=== PATIENT | male | born 1950 | race Hispanic/Latino ===

== ENCOUNTER 2018-10-21 06:23 | Inpatient (IN) | payer MEDICARE, BC ==
[2018-10-21 07:01] LABS: BASO # 0.06 K/mm3 (0.0-2.0); BASO % 0.6 % (0.0-3.0); EOS # 1.1 (0.0-0.7); EOS % 11.3 % (1.5-5.0); HEMOGLOBIN 15.1 g/dL (14.0-18.0); LYMPH # 3.3 (1.2-3.4); MEAN CELL VOLUME 89.8 fl (80.0-105.0); MEAN CORPUSCULAR HEMOGLOBIN 30.1 pg (25.0-35.0); MEAN CORPUSCULAR HGB CONC 33.6 g/dl (31.0-37.0); MEAN PLATELET VOLUME 10.1 fl (7.0-11.0); MONO # 1.2 (0.1-0.6); MONO % 11.6 % (1.0-6.0); RBC 5.01 10^6/uL (3.5-6.1); RED CELL DISTRIBUTION WIDTH 13.3 % (11.5-14.5); WHITE BLOOD COUNT 9.9 10^3/uL (4.5-11.0)
[2018-10-21] MEDS ORDERED: Sodium Chloride 0.9% 1,000 ML IV STA (07:04)
[2018-10-21 07:06] LABS: INR 1.02; PARTIAL THROMBOPLASTIN TIME 27.3 Seconds (26.9-38.3); PROTHROMBIN TIME 11.5 SECONDS (9.4-12.5)
--- NOTE | 2018-10-21 07:15 | ED PDOC ---
Arrival/HPI - General Chief Complaint: Chest Pain Historian: Patient, Spouse - History of Present Illness Narrative History of Present Illness (Text): 10/21/18 07:09 Pt is a 68 yo male with a PMH of Hhyperlipidemia, hypertension, MO with 8 stents most recent April 2018, rheumatic fever who presented to the ED complaining of 6/10 "heavy" chest pain which started at 5am this morning while the pt was sleeping. The pain awoke the pt from sleep, pt states he woke up diaphoretic and felt like the room was spinning. Pt at bedside to help relate the history. Pt has a strong family history of cardiac problems. Pt states he take Brilinta and ASA, but forgot to take his morning dose of Brilinta yesterday. Pt states the pain radiates down his right arm. Denies pain radiating to his jaw. Pt reports feeling like the room is spinning. The pain is not positional. Pt states he feels shortness of breath. Denies nausea, vomiting. Time/Duration: 1-3 hours Symptom Onset: Sudden Symptom Course: Worsening Quality: Pressure Severity Level: 6 Activities at Onset: Sleeping Context: Sitting Past Medical History - Infectious Disease Hx of Infectious Diseases: None - Tetanus Immunization Tetanus Immunization: Unknown - Past Medical History Past Medical History: No Previous - Cardiac Hx MO: Yes - Psychiatric Hx Depression: No Hx Emotional Abuse: No Hx Physical Abuse: No Hx Substance Use: No - Past Surgical History Past Surgical History: No Previous - Surgical History Hx Cardiac Catheterization: Yes Hx Coronary Stent: Yes (x7) - Suicidal Assessment Feels Threatened In Home Enviroment: No Family/Social History Family/Social History: Hypertension, CAD/MO Smoking Status: Never Smoked Hx Alcohol Use: No Hx Substance Use: No Hx Substance Use Treatment: No Allergies/Home Meds Allergies/Adverse Reactions: Allergies No Known Allergies Allergy (Verified 09/23/12 19:57) Home Medications: Home Meds Medication Instructions Recorded Confirmed Atorvastatin Calcium [Lipitor] 40 mg PO DAILY 09/23/12 09/23/12 Ezetimibe [Zetia] 10 mg PO DAILY 09/23/12 09/23/12 Metoprolol Tartrate [Lopressor] 25 mg PO BID 09/23/12 09/23/12 Ramipril [Altace] 10 mg PO DAILY 09/23/12 09/23/12 Review of Systems - Review of Systems Constitutional: Night Sweats Eyes: Normal ENT: Normal Respiratory: SOB Cardiovascular: Chest Pain Gastrointestinal: Normal Musculoskeletal: Normal Skin: Normal Neurological: Dizziness Endocrine: Normal Hemo/Lymphatic: Normal Psychiatric: Normal Physical Exam Vital Signs Reviewed: Yes Vital Signs Temp Pulse Resp BP Pulse Ox 10/21/18 06:24 97.1 F L 69 24 134/71 94 L Temperature: Afebrile Blood Pressure: Normal Pulse: Regular Respiratory Rate: Normal Appearance: Positive for: Uncomfortable Mental Status: Positive for: Alert and Oriented X 3 - Systems Exam Head: Present: Atraumatic, Normocephalic Pupils: Present: PERRL Extroacular Muscles: Present: EOMI Mouth: Present: Moist Mucous Membranes Pharnyx: Present: Normal Respiratory/Chest: Present: Clear to Auscultation, Good Air Exchange. No: Respiratory Distress, Accessory Muscle Use Cardiovascular: Present: Regular Rate and Rhythm, Normal S1, S2 Abdomen: Present: Normal Bowel Sounds. No: Tenderness, Distention Upper Extremity: Present: Normal Inspection. No: Cyanosis, Edema Lower Extremity: Present: Normal Inspection Neurological: Present: GCS=15, CN II-XII Intact Skin: Present: Warm, Dry, Normal Color Psychiatric: Present: Alert, Oriented x 3 Medical Decision Making ED Course and Treatment: 10/21/18 07:18 Troponin Cardiac Iso CMP BNP Nitro SL Bolus 1L NS CXR shows no acute pathology EKG RRR, shows no ST or T wave abnormality, no signs of STEMI 10/21/18 07:35 pt complaining of nausea, gave reglan 10/21/18 08:33 HEART Score for Major Cardiac Events 6 points Moderate Score (4-6 points) Risk of MACE of 12-16.6%. History > 2 = Highly suspicious EKG > 0 = Normal Age > 2 = >65 Risk factors > 2 = >3 risk factors or history of atherosclerotic disease Initial troponin > [address] De La Vega, admit pt to tele for observation and ACS rule out Pt seen, examined, assessment and plan discussed with Dr Eloisa Magana PGY1 - Lab Interpretations Lab Results: PT 11.5 SECONDS (9.4-12.5) 10/21/18 06:40 INR 1.02 10/21/18 06:40 APTT 27.3 Seconds (26.9-38.3) 10/21/18 06:40 - RAD Interpretation Radiology Orders: 10/21/18 06:48 CHEST PORTABLE [RAD] Stat - Medication Orders Current Medication Orders: Sodium Chloride (Sodium Chloride 0.9%) 1,000 mls @ 999 mls/hr IV .Q1H1M STA Stop: 10/21/18 08:04 Discontinued Medications Nitroglycerin (Nitrostat Sl Tab) 0.4 mg SL STAT STA Stop: 10/21/18 07:06 - PA / PHARMACY DELIVERY DRIVER / Resident Statement KEHINDE has reviewed & agrees with the documentation as recorded. / has examined the patient and agrees with the treatment plan. Disposition/Present on Arrival - Present on Arrival Any Indicators Present on Arrival: No History of DVT/PE: No History of Uncontrolled Diabetes: No Urinary Catheter: No History of Decub. Ulcer: No History Surgical Site Infection Following: None - Disposition Have Diagnosis and Disposition been Completed?: Yes Diagnosis: Chest pain Disposition: HOSPITALIZED Disposition Time: 08:40 Patient Plan: Admission Patient Problems: Current Active Problems Problem Status Onset Chest pain Acute Condition: FAIR Discharge Instructions (ExitCare): Chest Pain (ED) Referrals: Kojo Gatica DO [Primary Care Provider] - Follow up with primary Forms: [id number] (Emirati)
[2018-10-21 07:50] VITALS: BMI 31.6
[2018-10-21 08:14] LABS: ALB/GLOB RATIO 1.4 (1.1-1.8); ALT/SGPT 40 U/L (7-56); AST/SGOT 39 U/L (17-59); BLOOD UREA NITROGEN 19 mg/dL (7-21); CALCIUM 8.9 mg/dL (8.4-10.5); GFR NON-AFRICAN AMERICAN > 60
[2018-10-21 08:26] LABS: CK MB% 2.1 % (2.5-3.0)
[2018-10-21 08:27] LABS: TROPONIN I < 0.01 ng/mL
--- NOTE | 2018-10-21 09:51 | CP.PCM.HP ---
<Kayla Arenas - Last Filed: 10/21/18 10:19> History of Present Illness - History of Present Illness History of Present Illness: H&P for Dr. Black's Service CC: Chest tightness/pain/dizziness/diaphoretic/shortness of breath HPI: 68 M with a PMHx of HTN, HLD, CAD s/p 8 stents (2006 -7stents &2018 -1 stent) that presented to [facility] with complaints of chest pain and tightness. He states his symptoms began roughly 5am this morning where he was awoken by his chest discomfort and found to be diaphoretic and dizzy as if he were spinning. He states his constellation of current symptoms were similar in nature to his first OH in 2005. 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 Patient was originally taking plavix after his first OH, finished his course and was started on Brilanta s/p his most recent OH in 2018. Patient was seen and examined at bedside with spouse available. Patient states his chest pain and discomfort has improved, however exacerbates intermittently with radiation to his right arm. He is less dizzy than before, and becomes more dizzy upon closing his eyes. He also has complaints of labored breathing, that has improved as well. Patient admits to 80-90% compliance with his home meds, and he stated that he had not taken his medications for the past couple of days on account of being too busy. Patient denied fever, abdominal p ains, headaches, blurry vision, nausea, vomiting, diarrhea, constipation, dysuria, hematuria, melena, or hematochezia. PMHx: HTN, HLD, CAD s/p 8 stents, rheumatic fever PSHx: PCI x 2 SHx: Denied tobacco/etoh/ illicit substances FamHx: Father: [place] in 50s, Mother: [place] Meds: asa, brilanta, lipitor, metoprolol, ramipril, chloraxazone 500 TID, Allergies: NKDA PMD: Dr. Gatica Cardiolgy: Dr. Cespedes Present on Admission - Present on Admission Any Indicators Present on Admission: No Review of Systems - Review of Systems Review of Systems: as per HPI otherwise negative Past Patient History - Infectious Disease Hx of Infectious Diseases: None - Tetanus Immunizations Tetanus Immunization: Unknown - Past Social History Smoking Status: Never Smoked - CARDIAC Hx Heart Attack: Yes - PSYCHIATRIC Hx Depression: No Hx Emotional Abuse: No Hx Physical Abuse: No Hx Substance Use: No - SURGICAL HISTORY Hx Cardiac Catheterization: Yes Hx Coronary Stent: Yes (x7) Meds Allergies/Adverse Reactions: Allergies Allergy/AdvReac Type Severity Reaction Status Date / Time No Known Allergies Allergy Verified 09/23/12 19:57 Physical Exam - Constitutional Appears: No Acute Distress - Head Exam Head Exam: ATRAUMATIC, NORMAL INSPECTION, NORMOCEPHALIC - Eye Exam Eye Exam: EOMI, Normal appearance, PERRL - ENT Exam ENT Exam: Mucous Membranes Moist, Normal Exam - Neck Exam Neck exam: Positive for: Normal Inspection - Respiratory Exam Respiratory Exam: Clear to Auscultation Bilateral, NORMAL BREATHING PATTERN. absent: Chest Wall Tenderness, Rales, Rhonchi - Cardiovascular Exam Cardiovascular Exam: REGULAR RHYTHM, +S1, +S2 - GI/Abdominal Exam GI & Abdominal Exam: Normal Bowel Sounds, Soft. absent: Tenderness - Extremities Exam Extremities exam: Positive for: normal inspection. Negative for: pedal edema - Neurological Exam Neurological exam: Alert, CN II-XII Intact, Normal Gait, Oriented x3, Reflexes Normal - Psychiatric Exam Psychiatric exam: Normal Affect, Normal Mood - Skin Skin Exam: Dry, Intact, Normal Color, Warm Results - Vital Signs Recent Vital Signs: Last Vital Signs Temp 97.1 F L 10/21/18 06:24 Pulse 76 10/21/18 09:28 Resp 16 10/21/18 09:28 BP 138/86 10/21/18 09:28 Pulse Ox 96 10/21/18 09:28 - Labs Result Diagrams: 10/21/18 06:40 10/21/18 06:40 Labs: Laboratory Results - last 24 hr 10/21/18 10/21/18 10/21/18 06:40 06:40 06:40 WBC 9.9 RBC 5.01 Hgb 15.1 Hct 45.0 MCV 89.8 MCH 30.1 MCHC 33.6 RDW 13.3 Plt Count 259 MPV 10.1 Neut % (Auto) 43.5 L Lymph % (Auto) 33.0 Stanton % (Auto) 11.6 H Eos % (Auto) 11.3 H Baso % (Auto) 0.6 Lymph # (Auto) 3.3 Stanton # (Auto) 1.2 H Eos # (Auto) 1.1 H Baso # (Auto) 0.06 Absolute Neuts (auto) 4.29 PT 11.5 INR 1.02 APTT 27.3 Sodium 141 Potassium 3.6 Chloride 108 H Carbon Dioxide 24 Anion Gap 13 BUN 19 Creatinine 0.8 Est GFR ( Amer) > 60 Est GFR (Non-Af Amer) > 60 Random Glucose 174 H Calcium 8.9 Total Bilirubin 0.3 AST 39 ALT 40 Alkaline Phosphatase 101 Lactate Dehydrogenase 551 Total Creatine Kinase 427 H CK-MB (CK-2) 9.0 H CK-MB (CK-2) % 2.1 L Troponin I < 0.01 NT-Pro-B Natriuret Pep 14.0 Total Protein 6.8 Albumin 4.0 Globulin 2.8 Albumin/Globulin Ratio 1.4 Assessment & Plan - Assessment and Plan (Free Text) Assessment: 68 M with a PMHx of HTN, HLD, CAD s/p 8 stents admitted for chest pain rule out of ACS Unstable Anglina - hx CAD s/p 8 stents - trop negative x1, continue to trend q8h - EKG trend - analgesics prn - nitropaste if pain persists - Heparin drip - asa and brilanta - Cardiology consult Dr. Whiteside Shortness of breath - duonebs prn - CXR pending - f/u BNP, CXR HTN - metoprolol 25 mg BID - Ramipril 10mg daily - VSS - continue to monitor HLD - lipid panel pending - lipitor 40mg - continue to monitor CAD s/p 8 stents - Asa and brilanta GI/ dvt ppx Seen reviewed and discussed with Dr. De La Vega <Sara De La Vega - Last Filed: 10/21/18 13:14> Results - Vital Signs Recent Vital Signs: Last Vital Signs Temp 97.4 F L 10/21/18 12:00 Pulse 73 10/21/18 12:00 Resp 19 10/21/18 12:00 BP 145/85 10/21/18 12:00 Pulse Ox 96 10/21/18 09:28 - Labs Result Diagrams: 10/21/18 06:40 10/21/18 06:40 Labs: Laboratory Results - last 24 hr 10/21/18 10/21/18 10/21/18 06:40 06:40 06:40 WBC 9.9 RBC 5.01 Hgb 15.1 Hct 45.0 MCV 89.8 MCH 30.1 MCHC 33.6 RDW 13.3 Plt Count 259 MPV 10.1 Neut % (Auto) 43.5 L Lymph % (Auto) 33.0 Stanton % (Auto) 11.6 H Eos % (Auto) 11.3 H Baso % (Auto) 0.6 Lymph # (Auto) 3.3 Stanton # (Auto) 1.2 H Eos # (Auto) 1.1 H Baso # (Auto) 0.06 Absolute Neuts (auto) 4.29 PT 11.5 INR 1.02 APTT 27.3 Sodium 141 Potassium 3.6 Chloride 108 H Carbon Dioxide 24 Anion Gap 13 BUN 19 Creatinine 0.8 Est GFR ( Amer) > 60 Est GFR (Non-Af Amer) > 60 Random Glucose 174 H Hemoglobin A1c Calcium 8.9 Phosphorus Magnesium Total Bilirubin 0.3 AST 39 ALT 40 Alkaline Phosphatase 101 Lactate Dehydrogenase 551 Total Creatine Kinase 427 H CK-MB (CK-2) 9.0 H CK-MB (CK-2) % 2.1 L Troponin I < 0.01 NT-Pro-B Natriuret Pep 14.0 Total Protein 6.8 Albumin 4.0 Globulin 2.8 Albumin/Globulin Ratio 1.4 Triglycerides Cholesterol LDL Cholesterol Direct HDL Cholesterol TSH 3rd Generation 10/21/18 10/21/18 10/21/18 06:40 06:40 06:40 WBC RBC Hgb Hct MCV MCH MCHC RDW Plt Count MPV Neut % (Auto) Lymph % (Auto) Stanton % (Auto) Eos % (Auto) Baso % (Auto) Lymph # (Auto) Stanton # (Auto) Eos # (Auto) Baso # (Auto) Absolute Neuts (auto) PT INR APTT Sodium Potassium Chloride Carbon Dioxide Anion Gap BUN Creatinine Est GFR ( Amer) Est GFR (Non-Af Amer) Random Glucose Hemoglobin A1c 6.0 Calcium Phosphorus 2.8 Magnesium 2.2 Total Bilirubin AST ALT Alkaline Phosphatase Lactate Dehydrogenase Total Creatine Kinase CK-MB (CK-2) CK-MB (CK-2) % Troponin I NT-Pro-B Natriuret Pep Total Protein Albumin Globulin Albumin/Globulin Ratio Triglycerides 193 H Cholesterol 170 LDL Cholesterol Direct 109 HDL Cholesterol 28 L TSH 3rd Generation 1.26 Attending/Attestation - Attestation I have personally seen and examined this patient.: Yes I have fully participated in the care of the patient.: Yes I have reviewed all pertinent clinical information: Yes Notes (Text): 10/21/18 13:10 Medical record note made by the resident after discussion with my direction and input after the patient was personally seen and examined by me. I have reviewed the chart and agree that the record accurately reflects by personal performance of the history, physical exam, data review, and medical decision-making, in the course for the patient. I have also personally directed the plan of care. 68 M with a PMHx of HTN, HLD, CAD, SP OH, multiple cardiac is admitted with chest pain started this morning.Chest pain is intermittent associated with diaphoresis and dyspnea.Patient EKG is negative for acute ST changes.His s ymptoms are suggestive of Unstable angina, Initial troponins are normal, we will get serial troponins to rule out OH. ,We will start patient on anticoagulation with IV heparin, Continue ASA/Brilanta/Metoprolol/Lipitor/Ramipril. We will get 2D Echo and cardiology consult. Management plan was discussed in detail with patient. Education was provided.
[2018-10-21] MEDS ORDERED: Enoxaparin 40 mg Syringe SC SCH (10:00)
--- NOTE | 2018-10-21 10:12 | RAD ---
Date of service: 10/21/2018 HISTORY: CHEST PAIN COMPARISON: No prior. TECHNIQUE: 1 view obtained. FINDINGS: LUNGS: No active pulmonary disease. PLEURA: No significant pleural effusion identified, no pneumothorax apparent. CARDIOVASCULAR: Aortic calcification Normal cardiac size. No pulmonary vascular congestion. OSSEOUS STRUCTURES: No significant abnormalities. VISUALIZED UPPER ABDOMEN: Normal. OTHER FINDINGS: None. IMPRESSION: No active disease.
[2018-10-21] MEDS ORDERED: Morphine 2 mg/ml ISec IVP STA (10:16)
[2018-10-21] MEDS ORDERED: Albuterol-Ipratrop 3 mg / 0.5 (3 ml) UD IH PRN (10:18)
[2018-10-21] MEDS ORDERED: Heparin25000 units/250ml 1/2NS 25,000 UNITS/250 ML BAG IV SCH (10:30)
--- NOTE | 2018-10-21 18:14 | CARD ---
APPROVED REPORT Date of service: 10/21/2018 EKG Measurement Heart [id number] <Conclusion> Normal sinus rhythm Minimal voltage criteria for LVH, may be normal variant Borderline ECG
--- NOTE | 2018-10-21 23:03 | CON ---
DATE: 10/21/2018 HISTORY OF PRESENT ILLNESS: The patient is a 68-year-old male with aggressive atherosclerosis with a eight stents placed by Dr. Dhaliwal in the past including a recent one done by Dr. Medeiros in [facility] in April 2018. The patient had a remote myocardial infarction in the past. His cardiac risk factors include hypertension, diabetes mellitus as well as hypercholesterolemia which is not ideally controlled. The patient woke up this morning with classic angina with substernal chest pain associated with diaphoresis The patient is compliant with his medications which include Brilinta, aspirin as well as Lipitor. SOCIAL HISTORY: The patient denies smoking. REVIEW OF SYSTEMS: A 14-point review of systems was as described as above. PHYSICAL EXAMINATION: VITAL SIGNS: The blood pressure is 138/86. The heart rate is in the 70s. NECK: Negative JVD. LUNGS: Without rales. HEART: S1, S2. EXTREMITIES: Without edema. EKG shows normal sinus rhythm with nonspecific ST-T changes. LABORATORY DATA: The glucose is 174. The first troponin is negative. The cholesterol LDL was 109. The hemoglobin is 15.1. IMPRESSION 1. Unstable angina. 2. High probability for recurrence of coronary stenosis. 3. History of multiple of multiple percutaneous transluminal coronary angioplasty and stents in the past. 4. Diabetes mellitus. 5. Hypertension. 6. Hypercholesterolemia. PLAN: Given these findings, the patient was started on aspirin, resumption of his the Brilinta, IV heparin, increased beta blockers. I have discussed risks, benefits of a repeat catheterization with the patient and family in detail. We will schedule for catheterization in the morning. Sagar Whiteside MD
[2018-10-22] MEDS ORDERED: Pantoprazole 40 mg EC Tab PO SCH (06:00)
[2018-10-22 06:45] LABS: BASO # 0.02 K/mm3 (0.0-2.0); BASO % 0.2 % (0.0-3.0); EOS # 0.5 (0.0-0.7); EOS % 3.7 % (1.5-5.0); LYMPH # 2.2 (1.2-3.4); LYMPH % 17.1 % (22.0-35.0); MEAN CORPUSCULAR HEMOGLOBIN 29.7 pg (25.0-35.0); MEAN CORPUSCULAR HGB CONC 32.9 g/dl (31.0-37.0); MEAN PLATELET VOLUME 9.9 fl (7.0-11.0); MONO # 1.2 (0.1-0.6); MONO % 9.4 % (1.0-6.0); RBC 4.72 10^6/uL (3.5-6.1); RED CELL DISTRIBUTION WIDTH 13.5 % (11.5-14.5); WHITE BLOOD COUNT 12.7 10^3/uL (4.5-11.0)
[2018-10-22 06:54] LABS: ALB/GLOB RATIO 1.3 (1.1-1.8); ALBUMIN 3.8 g/dL (3.0-4.8); ALT/SGPT 40 U/L (7-56); AST/SGOT 28 U/L (17-59); BLOOD UREA NITROGEN 19 mg/dL (7-21); GFR NON-AFRICAN AMERICAN > 60
[2018-10-22] MEDS ORDERED: Lidocaine PF 2% (5 ml) Inj (For Cardiac Arrhy) ONE (07:14)
[2018-10-22] MEDS ORDERED: Iohexol 350mgl/ml 50 ML ONE (07:14)
[2018-10-22] MEDS ORDERED: Iodixanol 320 MG/ML 100 ML BOTTLE IV ONE (07:14)
[2018-10-22] MEDS ORDERED: Iodixanol 320 MG/ML 200 ML BOTTLE IV ONE (07:15)
[2018-10-22] MEDS ORDERED: Famotidine 20mg/50ml 20 MG/50 ML BAG IVPB ONE (08:27)
[2018-10-22] MEDS ORDERED: DiphenhydrAMINE 50 mg/ml Inj ONE (08:27)
[2018-10-22] MEDS ORDERED: Midazolam 2 MG/2 ML VIAL ONE ×2 (09:06→09:13)
[2018-10-22] MEDS ORDERED: Sodium Chloride 0.9% 1,000 ML IV SCH (10:00)
--- NOTE | 2018-10-22 12:17 | CP.PCM.PCO ---
Physician Communication Note - Physician Communication Note Physician Communication Note: echocardiogram and carotid pending, s/p cardiac cath with stenting
--- NOTE | 2018-10-22 14:29 | CARDCATH ---
PROCEDURE DATE: 10/22/2018 CARDIAC CATHETERIZATION AND PTCA HISTORY: The patient is a 68-year-old male who presents with unstable angina. Because of his ongoing symptoms, cardiac catheterization was recommended. PROCEDURE: Left heart catheterization with coronary arteriography and left ventriculogram followed by with supra-aortic valvular injection, followed by PTCA and stent of the circumflex artery. The right femoral artery was cannulated with 6-Djiboutian sheath. There were no complications. I performed moderate sedation which included the presence of an independent trained observer that assisted in monitoring the patient's level of consciousness and physiologic status. After administration of Versed and fentanyl, my intra service time was 30 minutes. The findings on catheterization revealed a left ventricle that revealed a mild segmental wall motion abnormality of the inferoapical segment. Overall ejection fraction was 50% to 55%. Supra-aortic valvular injection revealed a dilated descending aorta without aortic insufficiency. The patient had a left dominant circulation. The RCA revealed a long stent in the proximal to midportion. There is a 50% stenosis in the distal portion of the stent. The left main artery is unremarkable. The LAD revealed diffuse atherosclerosis with a patent stent. The circumflex artery and obtuse marginal branches revealed multiple stents throughout its vessel and branches in the second obtuse marginal branch in the proximal portion. In between two stents, there is a 80% stenosis noted. The patient was started on intravenous Angiomax on the floor on the fluoroscopic guide, the guiding catheter was placed in the ostium of the left main artery and 0.014 ATW wire was used to cross the critical lesion, 2.75 x 12 mm drug-eluting stent was placed and deployed at 15 ounces of pressure. Repeat coronary arteriography revealed an excellent result with no residual stenosis and RACHEL III flow. AngioSeal was used to close the femoral artery site. The patient tolerated the procedure well. In summary, the procedure was successful for PTCA and stent of a critically stenosed obtuse marginal branch. The patient has multiple stents throughout its coronary tree and has aggressive atherosclerosis. His cholesterol is not well-controlled on extensive statin therapy. He has been intolerant to many others. Given his aggressive nature of his atherosclerosis and is poorly controlled cholesterol with oral statin therapy including intolerance to some of the medications, we will recommended the patient be placed on the . He will need to continue his aspirin and Brilinta for least a year. Sagar Whiteside MD [facility] # [id number]
--- NOTE | 2018-10-22 15:09 | CP.PCM.PN ---
<Dea Beltran - Last Filed: 10/22/18 14:47> Subjective - Date & Time of Evaluation Date of Evaluation: 10/22/18 Time of Evaluation: 14:47 - Subjective Subjective: Dea Beltran, PGY-1, Internal Medicine Progress Note for Dr. Holland Patient seen and evaluated at bedside. Patient had no acute overnight events. Patient went to cardiac catheterization this morning at 7 AM and tolerated the procedure well. 12-point ROS was unremarkable except for what was mentioned above. Objective - Vital Signs/Intake and Output Vital Signs (last 24 hours): Temp Pulse Resp BP Pulse Ox 97.9 F 92 H 18 120/62 93 L 10/22/18 12:00 10/22/18 12:00 10/22/18 12:00 10/22/18 12:00 10/22/18 06:00 Intake and Output: 10/22/18 10/22/18 06:59 18:59 Intake Total 340 Output Total 2 Balance 338 - Medications Medications: Current Medications Acetaminophen (Tylenol 325mg Tab) 650 mg PO Q6H PRN PRN Reason: Pain, moderate (4-7) Last Admin: 10/22/18 00:33 Dose: 650 mg Albuterol/Ipratropium (Duoneb 3 Mg/0.5 Mg (3 Ml) Ud) 3 ml IH Q2H PRN PRN Reason: Shortness of Breath Aspirin (Ecotrin) 81 mg PO 0800 [facility] Last Admin: 10/22/18 10:49 Dose: Not Given Atorvastatin Calcium (Lipitor) 40 mg PO DIN [facility] Last Admin: 10/21/18 17:54 Dose: 40 mg Sodium Chloride (Sodium Chloride 0.9%) 1,000 mls @ 100 mls/hr IV .Q10H [facility] Stop: 10/22/18 15:00 Last Admin: 10/22/18 10:48 Dose: 100 mls/hr Isosorbide Mononitrate (Imdur) 60 mg PO DAILY [facility] Last Admin: 10/22/18 10:48 Dose: 60 mg Metoprolol Tartrate (Lopressor) 50 mg PO BRKDIN [facility] Last Admin: 10/22/18 06:48 Dose: 50 mg Ramipril (Altace) 5 mg PO DAILY [facility] Last Admin: 10/22/18 10:48 Dose: 5 mg Ticagrelor (Brilinta) 90 mg PO BID [facility] Last Admin: 10/22/18 10:49 Dose: Not Given - Labs Labs: 10/22/18 06:30 10/22/18 06:30 PT 11.5 SECONDS (9.4-12.5) 10/21/18 06:40 INR 1.02 10/21/18 06:40 APTT 79.5 Seconds (26.9-38.3) H 10/22/18 10:30 - Constitutional Appears: Well, Non-toxic, No Acute Distress - Head Exam Head Exam: ATRAUMATIC, NORMAL INSPECTION, NORMOCEPHALIC - Eye Exam Eye Exam: EOMI, PERRL - ENT Exam ENT Exam: Mucous Membranes Moist - Respiratory Exam Respiratory Exam: Clear to Ausculation Bilateral, NORMAL BREATHING PATTERN - Cardiovascular Exam Cardiovascular Exam: REGULAR RHYTHM, RRR, +S1, +S2. absent: Clicks, Gallop, Rub s - GI/Abdominal Exam GI & Abdominal Exam: Soft, Normal Bowel Sounds. absent: Distended, Firm, Guarding, Tenderness - Extremities Exam Extremities Exam: Full ROM, Normal Capillary Refill - Neurological Exam Neurological Exam: Alert, Awake, CN II-XII Intact, Oriented x3 - Psychiatric Exam Psychiatric exam: Normal Affect, Normal Mood - Skin Skin Exam: Dry, Intact, Normal Color Assessment and Plan - Assessment and Plan (Free Text) Assessment: 68 year old male with past medical history of hypertension, hyperlipidemia, CAD status post 8 stents presented with chest pain. EKG was NSR and tropx3 were negative. Patient had cardiac catheterization on 10/22 for suspicion of unstable angina. Plan: Unstable angina -EKG shows no ST segment elevations and is normal sinus rhythm with HR: 69 on admission -Tropx3 negative -Cardiac catheterization 10/22: PTCA and stent of critically stenosed obtuse marginal branch. Patient has multiple stents and has aggressive atherosclerosis -Continue with aspirin, lipitor, brilinta, imdur, lopressor, ramipril Hyperlipidemia -Continue with lipitor Shortness of breath -Continue with duonebs PRN -CXR shows no evidence of effusions, infiltrates Hypertension -Continue with lopressor and ramipril GI prophylaxis: protonix DVT prophylaxis: SCD Patient plan discussed with Dr. Holland. <Aaliyah Holland - Last Filed: 10/22/18 15:45> Objective - Vital Signs/Intake and Output Vital Signs (last 24 hours): Temp Pulse Resp BP Pulse Ox 97.9 F 92 H 18 120/62 93 L 10/22/18 12:00 10/22/18 12:00 10/22/18 12:00 10/22/18 12:00 10/22/18 06:00 Intake and Output: 10/22/18 10/22/18 06:59 18:59 Intake Total 340 Output Total 2 Balance 338 - Medications Medications: Current Medications Acetaminophen (Tylenol 325mg Tab) 650 mg PO Q6H PRN PRN Reason: Pain, moderate (4-7) Last Admin: 10/22/18 00:33 Dose: 650 mg Albuterol/Ipratropium (Duoneb 3 Mg/0.5 Mg (3 Ml) Ud) 3 ml IH Q2H PRN PRN Reason: Shortness of Breath Aspirin (Ecotrin) 81 mg PO 0800 [facility] Last Admin: 10/22/18 10:49 Dose: Not Given Atorvastatin Calcium (Lipitor) 40 mg PO DIN [facility] Last Admin: 10/21/18 17:54 Dose: 40 mg Isosorbide Mononitrate (Imdur) 60 mg PO DAILY [facility] Last Admin: 10/22/18 10:48 Dose: 60 mg Metoprolol Tartrate (Lopressor) 50 mg PO BRKDIN [facility] Last Admin: 10/22/18 06:48 Dose: 50 mg Pantoprazole Sodium (Protonix Ec Tab) 40 mg PO 0600 [facility] Ramipril (Altace) 5 mg PO DAILY [facility] Last Admin: 10/22/18 10:48 Dose: 5 mg Ticagrelor (Brilinta) 90 mg PO BID [facility] Last Admin: 10/22/18 10:49 Dose: Not Given - Labs Labs: 10/22/18 06:30 10/22/18 06:30 PT 11.5 SECONDS (9.4-12.5) 10/21/18 06:40 INR 1.02 10/21/18 06:40 APTT 79.5 Seconds (26.9-38.3) H 10/22/18 10:30 Attending/Attestation - Attestation I have personally seen and examined this patient.: Yes I have fully participated in the care of the patient.: Yes I have reviewed all pertinent clinical information, including history, physical exam and plan: Yes Notes (Text): 10/22/18 15:42 68 year old male with past medical history of CAD s/p multiple stents, hypertens ion, and dyslipidemia who presented with complaint of chest pain. He was seen by cardiology and underwent cardiac cath today with stent placement of critically stenosed obtuse marginal branch artery. Continue with aspirin, brilinta, lipitor, imdur, lopressor and ramipri. He is pending echocardiogram and carotid dopplers. is at bedside and questions were answered. Aaliyah Holland MD Hospitalist.
[2018-10-22 16:31] VITALS: RESP 18
--- NOTE | 2018-10-22 17:32 | US ---
PROCEDURE: Bilateral carotid artery duplex ultrasound HISTORY: Carotid stenosis TIA PHYSICIAN(S): Sagar Brambila MD. TECHNIQUE: Duplex sonography and color-flow Doppler were used to evaluate the carotid bifurcations and limited segments of the vertebral arteries bilaterally. FINDINGS: There is moderate focal heterogeneous echogenic plaque noted at the carotid bifurcations bilaterally. The peak systolic velocity in the proximal right internal carotid artery is 159 cm/sec. This corresponds to a 60-79 percent proximal right ICA stenosis. Normal systolic velocities are noted in the proximal right external carotid artery. There is antegrade flow in the small right vertebral artery. The peak systolic velocity in the proximal left internal carotid artery is 91 cm/sec. This corresponds to a 20 to 39% proximal left ICA stenosis. Normal systolic velocities are noted in the proximal left external carotid artery. There is antegrade flow in the left vertebral artery. IMPRESSION: 1. 60-79 percent proximal right ICA stenosis. 2. 20-39 percent proximal left ICA stenosis. 3. Antegrade flow in both vertebral arteries.
--- NOTE | 2018-10-22 18:23 | CARD ---
APPROVED REPORT Date of service: 10/22/2018 EKG Measurement Heart [id number] <Conclusion> Normal sinus rhythm Normal ECG
--- NOTE | 2018-10-22 18:47 | CARD ---
APPROVED REPORT Date of service: 10/22/2018 EXAM: Two-dimensional and M-mode echocardiogram with Doppler and color Doppler. INDICATION Chest Pain 2D DIMENSIONS Left Atrium (2D)4.6 (1.6-4.0cm)IVSd1.2 (0.7-1.1cm) LVDd4.8 (3.9-5.9cm)PWd1.3 (0.7-1.1cm) LVDs3.3 (2.5-4.0cm)FS (%) 30.6 % LVEF (%)58.2 (>50%) M-Mode DIMENSIONS Aortic Root4.40 (2.2-3.7cm)Aortic Cusp Exc.1.80 (1.5-2.0cm) Aortic Valve AoV Peak Nqxnxlwz827.0cm/[place] Peak GR.11mmHg Mitral Valve MV E Dmoqcbwa85.2cm/sMV A Gzbvyand95.7cm/sE/A ratio0.7 TDI Lateral E' Peak V7.60cm/sMedial E' Peak V7.90cm/sE/Lateral E'7.8 E/Medial E'7.5 Pulmonary Valve PV Peak Vxrftbbe30.3cm/sPV Peak Grad.3mmHg Tricuspid Valve TR Peak Nqgsatxp720ew/sRAP URPKPJLL74rwCgVE Peak Gr.16mmHg [id number] LEFT VENTRICLE The left ventricle is normal size. There is borderline to mild concentric left ventricular hypertrophy. Proximal septal thickening is noted. The left ventricular function is normal.EF-55-60% There is normal LV segmental wall motion. Transmitral Doppler flow pattern is Grade III-reversible restrictive diastolic dysfunction. No left ventricle thrombus noted on this study. There is no ventricular septal defect visualized. There is no left ventricular aneurysm. There is no mass noted in the left ventricle. RIGHT VENTRICLE The right ventricle is normal size. There is normal right ventricular wall thickness. The right ventricular systolic function is normal. ATRIA The left atrium size is normal. The right atrium size is normal. The interatrial septum is intact with no evidence for an atrial septal defect. AORTIC VALVE The aortic valve is thickened but opens well. The aortic valve is mildly to moderately sclerotic. No aortic regurgitation is present. There is no aortic valvular stenosis. There is no aortic valvular vegetation. MITRAL VALVE The mitral valve is thickened but opens well. Mitral regurgitation is trace. There is no mitral valve stenosis. There is no evidence of mitral valve prolapse. TRICUSPID VALVE The tricuspid valve leaflets are thickened , but open well. There is trace tricuspid regurgitation.RVSP-26 mmof hg. There is no tricuspid valve stenosis. There is no tricuspid valve prolapse or vegetation. PULMONIC VALVE The pulmonary valve is normal in structure. There is trace pulmonic valvular regurgitation. There is no pulmonic valvular stenosis. GREAT VESSELS The aortic root is normal in size. The ascending aorta is normal in size. The pulmonary artery is normal. The IVC is normal in size and collapses >50% with inspiration. PERICARDIAL EFFUSION There is no pleural effusion. There is no pericardial effusion. <Conclusion> The left ventricle is normal size. The left ventricular function is normal.EF-55-60% There is borderline to mild concentric left ventricular hypertrophy. Proximal septal thickening is noted. Mitral regurgitation is trace. There is trace tricuspid regurgitation.RVSP-26 mmof hg. The IVC is normal in size and collapses >50% with inspiration. There is no pericardial effusion.
[2018-10-23] MEDS ORDERED: Pantoprazole 40 mg EC Tab PO SCH (06:00)
[2018-10-23 07:24] LABS: BASO # 0.02 K/mm3 (0.0-2.0); BASO % 0.2 % (0.0-3.0); EOS # 0.5 (0.0-0.7); EOS % 5.3 % (1.5-5.0); HEMOGLOBIN 13.4 g/dL (14.0-18.0); LYMPH # 1.8 (1.2-3.4); LYMPH % 19.4 % (22.0-35.0); MEAN CELL VOLUME 90.8 fl (80.0-105.0); MEAN CORPUSCULAR HEMOGLOBIN 29.5 pg (25.0-35.0); MEAN CORPUSCULAR HGB CONC 32.4 g/dl (31.0-37.0); MEAN PLATELET VOLUME 9.9 fl (7.0-11.0); MONO # 1.1 (0.1-0.6); MONO % 12.5 % (1.0-6.0); RBC 4.55 10^6/uL (3.5-6.1); RED CELL DISTRIBUTION WIDTH 13.5 % (11.5-14.5); WHITE BLOOD COUNT 9.1 10^3/uL (4.5-11.0)
[2018-10-23 07:41] LABS: ALB/GLOB RATIO 1.3 (1.1-1.8); ALBUMIN 3.4 g/dL (3.0-4.8); ALT/SGPT 29 U/L (7-56); AST/SGOT 25 U/L (17-59); BLOOD UREA NITROGEN 16 mg/dL (7-21); CALCIUM 8.7 mg/dL (8.4-10.5); GFR NON-AFRICAN AMERICAN > 60
[2018-10-23] MEDS ORDERED: Potassium Chloride 20 mEq ER Tab PO STA (09:59)
--- NOTE | 2018-10-23 11:34 | CARD ---
APPROVED REPORT Date of service: 10/23/2018 EKG Measurement Heart [id number] <Conclusion> Normal sinus rhythm Minimal voltage criteria for LVH, may be normal variant Borderline ECG
[2018-10-23 12:43] VITALS: BP 116/65; TEMP 97.6; O2SAT 93
--- NOTE | 2018-10-23 15:36 | CP.PCM.DIS ---
<VannessanaeemDea sanders - Last Filed: 10/23/18 15:21> Provider - Provider Date of Admission: 10/21/18 08:37 Attending physician: Aaliyah Holland MD Primary care physician: Kojo Gatica DO Consults: 10/21/18 10:16 Cardiology Consult Routine Comment: Consulting Provider: Sagar Whiteside Consulting Physician: Sagar Whiteside Reason for Consult: cp, hx CAD s/p stent Time Spent in preparation of Discharge (in minutes): 60 Hospital Course - Lab Results Lab Results: Most Recent Lab Values WBC 9.1 10^3/uL (4.5-11.0) D 10/23/18 07:00 RBC 4.55 10^6/uL (3.5-6.1) 10/23/18 07:00 Hgb 13.4 g/dL (14.0-18.0) L 10/23/18 07:00 Hct 41.3 % (42.0-52.0) L 10/23/18 07:00 MCV 90.8 fl (80.0-105.0) 10/23/18 07:00 MCH 29.5 pg (25.0-35.0) 10/23/18 07:00 MCHC 32.4 g/dl (31.0-37.0) 10/23/18 07:00 RDW 13.5 % (11.5-14.5) 10/23/18 07:00 Plt Count 198 10^3/uL (120.0-450.0) 10/23/18 07:00 MPV 9.9 fl (7.0-11.0) 10/23/18 07:00 Neut % (Auto) 62.6 % (50.0-68.0) 10/23/18 07:00 Lymph % (Auto) 19.4 % (22.0-35.0) L 10/23/18 07:00 Lander % (Auto) 12.5 % (1.0-6.0) H 10/23/18 07:00 Eos % (Auto) 5.3 % (1.5-5.0) H 10/23/18 07:00 Baso % (Auto) 0.2 % (0.0-3.0) 10/23/18 07:00 Lymph # (Auto) 1.8 (1.2-3.4) 10/23/18 07:00 Lander # (Auto) 1.1 (0.1-0.6) H 10/23/18 07:00 Eos # (Auto) 0.5 (0.0-0.7) 10/23/18 07:00 Baso # (Auto) 0.02 K/mm3 (0.0-2.0) 10/23/18 07:00 Absolute Neuts (auto) 5.71 (1.4-6.5) 10/23/18 07:00 PT 11.5 SECONDS (9.4-12.5) 10/21/18 06:40 INR 1.02 10/21/18 06:40 APTT 79.5 Seconds (26.9-38.3) H 10/22/18 10:30 Sodium 141 mmol/L (132-148) 10/23/18 07:00 Potassium 3.4 mmol/L (3.6-5.0) L 10/23/18 07:00 Chloride 109 mmol/L (98-107) H 10/23/18 07:00 Carbon Dioxide 25 mmol/L (21-33) 10/23/18 07:00 Anion Gap 11 (10-20) 10/23/18 07:00 BUN 16 mg/dL (7-21) 10/23/18 07:00 Creatinine 0.9 mg/dl (0.8-1.5) 10/23/18 07:00 Est GFR ( Amer) > 60 10/23/18 07:00 Est GFR (Non-Af Amer) > 60 10/23/18 07:00 Random Glucose 126 mg/dL (70-110) H 10/23/18 07:00 Hemoglobin A1c 6.0 % (4.2-6.5) 10/21/18 06:40 Calcium 8.7 mg/dL (8.4-10.5) 10/23/18 07:00 Phosphorus 2.8 mg/dL (2.5-4.5) 10/21/18 06:40 Magnesium 2.2 mg/dL (1.7-2.2) 10/21/18 06:40 Total Bilirubin 0.6 mg/dL (0.2-1.3) 10/23/18 07:00 AST 25 U/L (17-59) 10/23/18 07:00 ALT 29 U/L (7-56) 10/23/18 07:00 Alkaline Phosphatase 66 U/L (38-126) 10/23/18 07:00 Lactate Dehydrogenase 551 U/L (333-699) 10/21/18 06:40 Total Creatine Kinase 427 U/L (35-230) H 10/21/18 06:40 CK-MB (CK-2) 9.0 ng/mL (0.0-3.6) H 10/21/18 06:40 CK-MB (CK-2) % 2.1 % (2.5-3.0) L 10/21/18 06:40 Troponin I < 0.01 ng/mL 10/21/18 23:20 NT-Pro-B Natriuret Pep 14.0 pg/mL (0-450) 10/21/18 06:40 Total Protein 6.2 g/dL (5.8-8.3) 10/23/18 07:00 Albumin 3.4 g/dL (3.0-4.8) 10/23/18 07:00 Globulin 2.7 gm/dL 10/23/18 07:00 Albumin/Globulin Ratio 1.3 (1.1-1.8) 10/23/18 07:00 Triglycerides 193 mg/dL (35-160) H 10/21/18 06:40 Cholesterol 170 mg/dL (130-200) 10/21/18 06:40 LDL Cholesterol Direct 109 mg/dL (0-129) 10/21/18 06:40 HDL Cholesterol 28 mg/dL (29-60) L 10/21/18 06:40 TSH 3rd Generation 1.26 mIU/mL (0.46-4.68) 10/21/18 06:40 - Hospital Course Hospital Course: Dea Beltran, PGY-1, Internal Medicine Discharge Summary for Dr. Holland 68 year old male with past medical history of hypertension, hyperlipidemia, CAD status post 8 stents presented with chest pain and chest tightness for one day. Patient reported symptoms began on 5 AM the day of admission. He also reported diaphoresis and dizziness as if his head was spinning. He had these same symptoms when he had an WA in 2005. He was followed by Dr. Cespedes, cardiology, and last saw him in September 2018 however he now wants to be transferred to the care of Dr. Whiteside. Patient was recently started on Brilinta for most recent WA in 2018. Upon admission, patient's chest pain improved but would exacerbate intermittently. He also reported associated shortness of breath. Patient reported to not be completely compliant with medications. Upon admission, EKG showed normal sinus rhythm with heart rate of 69 and troponinx3 was negative. Echocardiogram showed LVEF of 58.2%. Proximal septal thickening was noted and had trace TR with RVSP of 26. Cardiac catheterization o n 10/22 was performed and had stent of critically stenosed obtuse marginal branch placed. Patient had multiple stents and aggressive atherosclerosis was appreciated. Carotid ultrasound was done which showed 60-79% right ICA stenosis, 20-39% left ICA stenosis, anterograde flow. Patient was started on aspirin, brillinta, lopressor, zestril, and imdur upon admission. Patient was on lipitor for hyperlipidemia. Patient was on zestril and lopressor for hypertension. Patient was found to be stable and ready for discharge. Patient was told to follow up with PCP within 3-5 days. Patient was told to take all medications as prescribed. Patient was instructed to follow up with Dr. Whiteside outpatient as extensive discussion was had regarding whether he wanted to stay with Dr. Cespedes or switch to Dr. Whiteside. Patient was told to return to the emergency department if he had any new or concerning symptoms. Discharge diagnoses Unstable angina Hypertension Hyperlipidemia CAD - Date & Time of H&P Date of H&P: 10/21/18 Time of H&P: 09:41 Discharge Exam - Head Exam Head Exam: ATRAUMATIC, NORMAL INSPECTION, NORMOCEPHALIC - Eye Exam Eye Exam: EOMI, PERRL - Respiratory Exam Respiratory Exam: Clear to PA & Lateral, NORMAL BREATHING PATTERN. absent: Rales, Rhonchi, Wheezes - Cardiovascular Exam Cardiovascular Exam: REGULAR RHYTHM, RRR, +S1, +S2. absent: Clicks, Gallop, Rubs - GI/Abdominal Exam GI & Abdominal Exam: Normal Bowel Sounds, Soft. absent: Distended, Firm, Guarding, Tenderness - Neurological Exam Neurological exam: Alert, CN II-XII Intact, Normal Gait, Oriented x3 - Psychiatric Exam Psychiatric exam: Normal Affect, Normal Mood - Skin Skin Exam: Dry, Intact, Normal Color Discharge Plan - Discharge Medications Prescriptions: Aspirin [Ecotrin] 81 mg PO 0800 30 Days #30 tabec Atorvastatin [Lipitor] 40 mg PO DIN 30 Days #30 tab Isosorbide Mononitrate [Imdur] 60 mg PO DAILY 30 Days #30 tab Metoprolol Tartrate [Lopressor] 50 mg PO BRKDIN 30 Days #60 tab Ramipril [Altace] 5 mg PO DAILY 30 Days #30 cap Ticagrelor [Brilinta] 90 mg PO BID 30 Days #60 tab - Follow Up Plan Condition: FAIR Disposition: HOME/ ROUTINE Instructions: Heart Healthy Diet, Cardiac Catheterization (DC), Coronary Stenting (DC), Triglyceride Level Additional Instructions: *Please follow up with your primary care doctor within 3-5 days and have patient follow up regarding carotid artery stenosis *Please follow up with your business development manager, Dr Whiteside in 3-4 weeks. *Please take all medications as prescribed. *Cardiac rehab 3 times per week. *Please return to the emergency department if you have any new or concerning symptoms. Referrals: Kojo Gatica DO [Primary Care Provider] - Sagar Whiteside MD [Staff Provider] - <Aaliyah Holland - Last Filed: 10/23/18 16:34> Provider - Provider Date of Admission: 10/21/18 08:37 Attending physician: Aaliyah Holland MD Primary care physician: Kojo Gatica DO Consults: 10/21/18 10:16 Cardiology Consult Routine Comment: Consulting Provider: Sagar Whiteside Consulting Physician: Sagar Whiteside Reason for Consult: cp, hx CAD s/p stent Hospital Course - Lab Results Lab Results: Most Recent Lab Values WBC 9.1 10^3/uL (4.5-11.0) D 10/23/18 07:00 RBC 4.55 10^6/uL (3.5-6.1) 10/23/18 07:00 Hgb 13.4 g/dL (14.0-18.0) L 10/23/18 07:00 Hct 41.3 % (42.0-52.0) L 10/23/18 07:00 MCV 90.8 fl (80.0-105.0) 10/23/18 07:00 MCH 29.5 pg (25.0-35.0) 10/23/18 07:00 MCHC 32.4 g/dl (31.0-37.0) 10/23/18 07:00 RDW 13.5 % (11.5-14.5) 10/23/18 07:00 Plt Count 198 10^3/uL (120.0-450.0) 10/23/18 07:00 MPV 9.9 fl (7.0-11.0) 10/23/18 07:00 Neut % (Auto) 62.6 % (50.0-68.0) 10/23/18 07:00 Lymph % (Auto) 19.4 % (22.0-35.0) L 10/23/18 07:00 Lander % (Auto) 12.5 % (1.0-6.0) H 10/23/18 07:00 Eos % (Auto) 5.3 % (1.5-5.0) H 10/23/18 07:00 Baso % (Auto) 0.2 % (0.0-3.0) 10/23/18 07:00 Lymph # (Auto) 1.8 (1.2-3.4) 10/23/18 07:00 Lander # (Auto) 1.1 (0.1-0.6) H 10/23/18 07:00 Eos # (Auto) 0.5 (0.0-0.7) 10/23/18 07:00 Baso # (Auto) 0.02 K/mm3 (0.0-2.0) 10/23/18 07:00 Absolute Neuts (auto) 5.71 (1.4-6.5) 10/23/18 07:00 PT 11.5 SECONDS (9.4-12.5) 10/21/18 06:40 INR 1.02 10/21/18 06:40 APTT 79.5 Seconds (26.9-38.3) H 10/22/18 10:30 Sodium 141 mmol/L (132-148) 10/23/18 07:00 Potassium 3.4 mmol/L (3.6-5.0) L 10/23/18 07:00 Chloride 109 mmol/L (98-107) H 10/23/18 07:00 Carbon Dioxide 25 mmol/L (21-33) 10/23/18 07:00 Anion Gap 11 (10-20) 10/23/18 07:00 BUN 16 mg/dL (7-21) 10/23/18 07:00 Creatinine 0.9 mg/dl (0.8-1.5) 10/23/18 07:00 Est GFR ( Amer) > 60 10/23/18 07:00 Est GFR (Non-Af Amer) > 60 10/23/18 07:00 Random Glucose 126 mg/dL (70-110) H 10/23/18 07:00 Hemoglobin A1c 6.0 % (4.2-6.5) 10/21/18 06:40 Calcium 8.7 mg/dL (8.4-10.5) 10/23/18 07:00 Phosphorus 2.8 mg/dL (2.5-4.5) 10/21/18 06:40 Magnesium 2.2 mg/dL (1.7-2.2) 10/21/18 06:40 Total Bilirubin 0.6 mg/dL (0.2-1.3) 10/23/18 07:00 AST 25 U/L (17-59) 10/23/18 07:00 ALT 29 U/L (7-56) 10/23/18 07:00 Alkaline Phosphatase 66 U/L (38-126) 10/23/18 07:00 Lactate Dehydrogenase 551 U/L (333-699) 10/21/18 06:40 Total Creatine Kinase 427 U/L (35-230) H 10/21/18 06:40 CK-MB (CK-2) 9.0 ng/mL (0.0-3.6) H 10/21/18 06:40 CK-MB (CK-2) % 2.1 % (2.5-3.0) L 10/21/18 06:40 Troponin I < 0.01 ng/mL 10/21/18 23:20 NT-Pro-B Natriuret Pep 14.0 pg/mL (0-450) 10/21/18 06:40 Total Protein 6.2 g/dL (5.8-8.3) 10/23/18 07:00 Albumin 3.4 g/dL (3.0-4.8) 10/23/18 07:00 Globulin 2.7 gm/dL 10/23/18 07:00 Albumin/Globulin Ratio 1.3 (1.1-1.8) 10/23/18 07:00 Triglycerides 193 mg/dL (35-160) H 10/21/18 06:40 Cholesterol 170 mg/dL (130-200) 10/21/18 06:40 LDL Cholesterol Direct 109 mg/dL (0-129) 10/21/18 06:40 HDL Cholesterol 28 mg/dL (29-60) L 10/21/18 06:40 TSH 3rd Generation 1.26 mIU/mL (0.46-4.68) 10/21/18 06:40 Attending/Attestation - Attestation I have personally seen and examined this patient.: Yes I have fully participated in the care of the patient.: Yes I have reviewed all pertinent clinical information, including history, physical exam and plan: Yes Notes (Text): 10/23/18 16:32 68 year old male with past medical history of CAD s/p multiple stents, hypertension, and dyslipidemia who presented with complaint of chest pain. He was seen by cardiology and underwent cardiac cath yesterday with stent placement of critically stenosed obtuse marginal branch artery. Recommended to continue with medical management with aspirin, brilinta, lipitor, imdur, lopressor and ramipril. Carotid doppler was reviewed as above showing 50-70% right ICA stenosis. Findings were discussed with to follow up with pmd for possible vascular/IR referral. Patient is discharged home to follow up with pmd and business development manager. Aaliyah Holland MD Hospitalist.
--- NOTE | 2018-10-23 15:38 | PN ---
DATE: 10/23/2018 SUBJECTIVE: The patient is chest-pain free. PHYSICAL EXAMINATION: VITAL SIGNS: Blood pressure is 116/65, heart rate s in the 70s. NECK: Negative JVD. LUNGS: Without rales. HEART: S1, S2. EXTREMITIES: Without edema. The right groin site is stable. BUN and creatinine are unremarkable. LABORATORY DATA: Hemoglobin is 13. IMPRESSION: 1. Stable post percutaneous transluminal coronary angioplasty and stent of the circumflex artery. 2. Multivessel coronary artery disease. 3. Hypercholesterolemia. 4. Hypertension. PLAN: Given these findings, the patient can be discharged today. Followup and instructions were given to the patient in detail. The patient will start cardiac rehab. Sagar Whiteside MD
[2018-10-23 15:50] VITALS: PULSE 83
== END 2018-10-23 15:54 | disposition home or self-care (01) | DRG 247 ==
LOC: ED 06:23 → ERH 08:37 → 2RNO 10:19 → 2RSO 10-22 10:02
PROVIDERS: ADMIT Internal Medicine; ATTEND Internal Medicine
PROC: 027034Z Dilation of Coronary Artery, One Artery with Drug-eluting Intraluminal Device, Percutaneous Approach (ICD-10-PCS; principal; 2018-10-22)
PROC: 4A023N7 Measurement of Cardiac Sampling and Pressure, Left Heart, Percutaneous Approach (ICD-10-PCS; 2018-10-22)
PROC: B2111ZZ Fluoroscopy of Multiple Coronary Arteries using Low Osmolar Contrast (ICD-10-PCS; 2018-10-22)
PROC: B2151ZZ Fluoroscopy of Left Heart using Low Osmolar Contrast (ICD-10-PCS; 2018-10-22)
DX: I25.110 Atherosclerotic heart disease of native coronary artery with unstable angina pectoris (principal); I10 Essential (primary) hypertension; E11.9 Type 2 diabetes mellitus without complications; E78.5 Hyperlipidemia, unspecified; I65.23 Occlusion and stenosis of bilateral carotid arteries; E78.00 Pure hypercholesterolemia, unspecified; Z91.14 Patient's other noncompliance with medication regimen; I25.2 Old myocardial infarction; Z95.5 Presence of coronary angioplasty implant and graft